=== PATIENT | female | born 1950 | race Caucasian/White ===

== ENCOUNTER → 2019-01-23 | Outpatient (CLI) | payer MEDICARE, BC ==
--- NOTE | 2019-01-23 15:42 | KCIC ---
MRI Lumbar Spine without contrast History: Sciatica, progressive low back pain into the left hip and leg for 2 years Technique: Multiplanar, multi sequential noncontrast MR imaging was performed of the lumbar spine. Comparison: None Findings: Lumbar vertebral body stature is overall maintained other than small multilevel Schmorl's nodes. There is very minimal posterior subluxation L4 relative to L5 and L3 relative to L4. Conus terminates near L1. There is moderate to severe degenerative disc disease L2-3 and L3-4 and to a somewhat lesser degree at L1-L2 and L4-5. There is some endplate edema at L3-4 greater anteriorly likely reactive/degenerative in etiology. Small focus of marrow signal change superiorly of L1 is likely a hemangioma. Trace anterior corner edema at L2-3 is likely reactive/degenerative in etiology. T12-L1: There is mild prominence of posterior epidural fat, mild buckling of the ligamentum flavum, mild facet hypertrophic change. Neural foramina and spinal canal are adequate. L1-L2: There is prominence of posterior epidural fat, mild buckling of the ligamentum flavum, mild facet hypertrophic change. Spinal canal and neural foramina are adequate. L2-L3: There is mild prominence of posterior epidural fat and facet degenerative change. Neural foramina and spinal canal are adequate. L3-L4: There is [id number] facet degenerative change. There is minimal proximal posterior epidural fat. There is minimal bulge, somewhat greater in the far right lateral recess. Spinal canal is overall adequate. Neural foramina are adequate. L4-L5: There is a broad protrusion more eccentric to left lateral recess, measures about 6 mm AP by about 19 mm transverse by 8 mm CC. There is indentation upon the ventral thecal sac greater in the far lateral recess, moderate to severe narrowing the far lateral recess impingement of the descending left L5 nerve root. There is mild facet degenerative change. There is severe narrowing of the left neural foramen by disc osteophyte complex and facet with contact of the exiting left L4 nerve root extending to the proximal extraforaminal region. There is also fairly severe narrowing of the right neural foramen by facet and disc osteophyte complex with contact undersurface exiting right L4 nerve root. L5-S1: Spinal canal is adequate. There is mild facet degenerative change greater on the left. There is minimal narrowing of the left neural foramen, right neural foramen adequate. Impression: 1. There is broad protrusion more eccentric to the far left lateral recess at L4-5 with left lateral recess stenosis and impingement of the descending left L5 nerve root. There is severe left greater than right L4-5 neural foramina compromise as described. 2. There is minimal posterior subluxation L4 relative to L5 and L3 relative to L4. 3. There is multilevel lumbar degenerative disc disease greatest L2-3 through L4-5. Electronically signed by: Luis M Parker MD (01/23/2019 3:40 PM) [id number]
== END | disposition home or self-care (01) ==
LOC: KCIC MRI 14:14
PROVIDERS: ATTEND Orthopaedic Surgery
DX: M51.36 Other intervertebral disc degeneration, lumbar region (principal); M48.07 Spinal stenosis, lumbosacral region; M89.38 Hypertrophy of bone, other site; M43.5X6 Other recurrent vertebral dislocation, lumbar region; M51.46 Schmorl's nodes, lumbar region; M53.86 Other specified dorsopathies, lumbar region
CPT/HCPCS: 72148